=== PATIENT | female | born 1995 | race Caucasian/White ===

== ENCOUNTER 2018-02-11 17:31 | Emergency (ER) | payer BC ==
--- NOTE | 2018-02-11 18:22 | EDPHY ---
General Time Seen by Provider: 02/11/18 17:48 Narrative: CHIEF COMPLAINT: "cut my thumb" HISTORY OF PRESENT ILLNESS: Patient presents from prior vehicle with complaints of laceration to the left thumb. She states that she accidentally cut her left thumb with a kitchen knife while cutting an avocado just prior to arrival. On the palm side of the thumb. Moderate bleeding that stopped with pressure. Painful to move the finger. No pain at rest. Does not radiate. No numbness or tingling. No difficulty bending or straightening. No injury elsewhere. Tetanus up-to-date. No other associated complaints or modifying factors TIME OF INJURY: Less than 1 hr ago TETANUS STATUS: Up-to-date MEDICAL/SURGICAL/SOCIAL HISTORY: Uncomplicated. [employer] student. Originally from [place]. REVIEW OF SYSTEMS: Ten systems reviewed and are negative unless otherwise noted in the HPI EXAMINATION General Appearance: Alert, no distress Head: normocephalic, atraumatic Cardiovascular: Radial pulses are symmetric. There is brisk cap refill in the fingers on left hand. Neurological: A&O, 2 point and light sensory symmetric, interossei strength symmetric Skin: Warm and dry, no rash. 1.5 cm laceration of the left thumb, palmar, overlying the middle portion of the proximal phalanx. No pulsatile bleeding. No foreign body. No underlying injury. No injury to the nail. Extremities: Minimal tenderness in the left thumb laceration. Range of motion of the fingers of the left hand is fully intact and symmetric to the right hand. Good opposition, adduction, abduction of the left thumb. DIFFERENTIAL DIAGNOSES: Including but not limited to simple laceration, laceration complication, laceration with tendon injury, laceration foreign body MDM: 5:50 p.m. Simple laceration to the left thumb, palmar side over the proximal phalanx. There is no exposure or injury to the flexor apparatus. Full range of motion of the thumb in all planes. Neuro intact distally. I have anesthetize the wound. We will irrigate and closed. No indication for x-ray. 6:20 p.m. Laceration has been repaired without difficulty. Tolerated well. Bacitracin and tube gauze applied. We discussed wound care instructions. Discussed ED precautions. We discussed light weight-bearing activities. We discussed returning here in 7-10 days for suture removal. I have answered all of her questions. She is discharged stable condition, PROCEDURE: Laceration repair Consent: Verbal Location: Left thumb, palmar, proximal phalanx Length of repair: 1.5 cm Complexity: Simple Layer involvement: Single Anesthesia: Local. I did not do a digital block Irrigation: Extensive Debridement: None Procedure description: Following good anesthesia, the wound was copiously irrigated. Wound bed was explored with a sterile glove, and there is no foreign body noted. No injury to the underlying deep tissue structures. Wound borders were approximated well with good hemostasis. Tolerated well without complication. Suture/Staple material: 5-0 Prolene, 3 simple interrupted sutures Wound care: Routine as discussed Suture/Staple removal: 7-10 Days SUPERVISION: This patient was independently evaluated without direct involvement of or examination by the attending physician. ED Precautions: Worsening pain. Erythema, edema, cyanosis, pallor, paresthesia or anesthesia. - History Smoking Status: Never smoked - Objective Vital Signs: Initial Vital Signs Temperature (C) 98.6 F 02/11/18 17:34 Heart Rate 81 02/11/18 17:34 Respiratory Rate 16 02/11/18 17:34 Blood Pressure 133/90 H 02/11/18 17:34 O2 Sat (%) 97 02/11/18 17:34 O2 Delivery Mode Room Air Allergies/Adverse Reactions: amoxicillin Allergy (Verified 02/11/18 17:34) Home Medications: Medication Instructions Recorded Bcp 02/11/18 Departure - Departure Disposition: Home, Routine, Self-Care Clinical Impression: Laceration of thumb without damage to nail Qualifiers: Encounter type: initial encounter Foreign body presence: without foreign body Laterality: left Qualified Code(s): S61.012A - Laceration without foreign body of left thumb without damage to nail, initial encounter Condition: Good Instructions: Care For Your Stitches (ED), Laceration (ED) Additional Instructions: 1. Thin layer of bacitracin once daily for the next 2 days 2. Keep the wound covered while showering for the next 3 days 3. Daily wound care as discussed 4. Return here for suture removal in 7-10 days 5. Return here for signs of infection as discussed including warmth, redness, fever, drainage from the site 6. return here for increasing pain surrounding the laceration 7. Do not submerge the wound in any water, hot tub, swimming pool until sutures removed Referrals: [facility] [Clinic] - As per Instructions Physician,Emergency Dept, [Medical Doctor] - As per Instructions (7-10 days for suture removal)
[2018-02-11 18:44] VITALS: BP 132/70
== END 2018-02-11 18:44 | disposition home or self-care (01) ==
PROC: 0HQGXZZ Repair Left Hand Skin, External Approach (ICD-10-PCS; principal; 2018-02-11)
DX: S61.012A Laceration without foreign body of left thumb without damage to nail, initial encounter (principal); W26.0XXA Contact with knife, initial encounter; Y93.G1 Activity, food preparation and clean up; Y92.9 Unspecified place or not applicable; Y99.9 Unspecified external cause status